=== PATIENT | male | born 1960 | race Caucasian/White ===

== ENCOUNTER 2018-03-02 18:06 | Emergency (ER) | payer SELFPAY ==
[2018-03-02 19:52] LABS: Basophils % (Auto) 0.2 % (0.0-1.8); Eosinophils # (Auto) 0.1 K/mm3 (0.0-0.4); Eosinophils % (Auto) 1.1 % (0.0-4.3); Hematocrit 38.4 % (35.5-45.6); Hemoglobin 13.1 gm/dl (11.8-15.2); Lymphocytes # (Auto) 3.2 K/mm3 (1.2-5.4); Lymphocytes % (Auto) 30.6 % (13.4-35.0); Mean Corpuscular HGB Conc 34 % (32-34); Mean Corpuscular Hemoglobin 32 pg (28-32); Mean Corpuscular Volume 92 fl (84-94); Monocytes # (Auto) 0.6 K/mm3 (0.0-0.8); Monocytes % (Auto) 5.8 % (0.0-7.3); Platelet Count 325 K/mm3 (140-440); Red Blood Count 4.15 M/mm3 (3.65-5.03); Red Cell Distribution Width 13.3 % (13.2-15.2)
[2018-03-02 20:13] LABS: Calcium 8.8 mg/dL (8.4-10.2)
[2018-03-02] MEDS ORDERED: APRESOLINE IV ONE ×2 (20:46→21:35)
[2018-03-02] MEDS ORDERED: D50W (25GM) Syringe IV ONE (20:46)
[2018-03-02] MEDS ORDERED: NORMODYNE IV ONE (20:47)
[2018-03-02] MEDS ORDERED: NACL 0.9% 1000 ML 1,000 ML IV ONE (21:35)
[2018-03-02] MEDS ORDERED: TYLENOL #3 PO ONE (21:35)
[2018-03-02] MEDS ORDERED: NACL 0.9% 1000 ML 1,000 ML ONE (21:36)
--- NOTE | 2018-03-03 02:12 | Emergency Department Report ---
HPI - General Chief Complaint: Hypoglycemia Time Seen by Provider: 03/02/18 20:43 - HPI HPI: The patient is a 57-year-old male with a history of diabetes, who presents for evaluation of low blood sugar. The patient states that last night he was found to have low blood [facility] the [facility] [place]. He currently complains of a mild achy frontal headache for the past day, consistent since onset. The patient denies fever, head injury, headache, neck pain, neck stiffness, vision or hearing changes, smell or taste changes, paresthesias, facial drooping, slurred speech, seizure-like activity, urine or bowel incontinence or retention , or other focal neurological deficit. ED Past Medical Hx - Past Medical History Previous Medical History?: Yes Hx Hypertension: Yes Hx Diabetes: Yes Hx Kidney Stones: Yes ("something with his kidneys") - Surgical History Past Surgical History?: No - Social History Smoking Status: Never Smoker Substance Use Type: None - Medications Home Medications: Home Medications Medication Instructions Recorded Confirmed Last Taken Type metFORMIN [Glucophage] 500 mg PO BID 03/02/18 03/02/18 Unknown History AtorvaSTATin [Lipitor] 40 mg PO DAILY #30 tablet 03/03/18 Unknown Rx amLODIPine [Norvasc] 5 mg PO DAILY #31 tab 03/03/18 Unknown Rx metFORMIN [Glucophage] 500 mg PO BID #30 tablet 03/03/18 Unknown Rx metFORMIN [Glucophage] 500 mg PO BID #60 tablet 03/03/18 Unknown Rx ED Review of Systems ROS: Stated complaint: GLUCOSE LOW Other details as noted in HPI Constitutional: denies: fever ENT: denies: throat or neck pain Respiratory: denies: cough, shortness of breath Cardiovascular: denies: chest pain Endocrine: denies unexplained weight loss or gain Gastrointestinal: denies: abdominal pain, nausea Genitourinary: denies: dysuria Musculoskeletal: denies: leg swelling Skin: denies: rash Neurological: reports headache Hematological/Lymphatic: denies: easy bleeding or easy bruising Psych: denies sadness or hopelessness Physical Exam - Physical Exam Vital Signs: Vital Signs 03/02/18 03/02/18 03/02/18 19:10 19:20 21:09 Temperature 98.9 F 97.7 F Pulse Rate 109 H 104 H 107 H Respiratory 18 18 Rate Blood Pressure 219/114 Blood Pressure 196/114 196/119 [Right] O2 Sat by Pulse 100 98 Oximetry 03/02/18 03/02/18 03/02/18 21:23 22:06 23:04 Temperature Pulse Rate 99 H 91 H Respiratory 16 17 Rate Blood Pressure 192/104 Blood Pressure 175/93 [Right] O2 Sat by Pulse 99 Oximetry 03/02/18 03/03/18 23:06 00:00 Temperature Pulse Rate 86 Respiratory 16 16 Rate Blood Pressure Blood Pressure 158/89 [Right] O2 Sat by Pulse 98 Oximetry Physical Exam: General: well-nourished, well-developed, no acute distress Head: Normocephalic, atraumatic Eyes: normal sclera ENT: Mucous membranes are pale and dry Neck: No neck stiffness, no cervical adenopathy Respiratory: Breath sounds equal bilaterally, no wheezing, rales, or rhonchi Cardio: S1 and S2 present, no murmurs, rubs, gallops, capillary refill is delayed Abdomen: Normoactive bowel sounds, soft abdomen, no rigidity, no guarding or rebound tenderness Chest WALL/Back: No tenderness to palpation of the chest wall, no CVA tenderness with percussion Musc: No pitting edema Skin: No rash Neuro: alert oriented x4, normal cognition, speech normal, PERRL, EOM intact, no facial drooping, no uvula or tongue deviation on protrusion, no deficit with rotation of neck or shoulder shrug, no obvious gross motor deficit in the upper or lower extremities with flexion or extension at the shoulder, elbow, wrist, hip, knee, or ankle bilaterally, no obvious gross sensation deficit to crude touch or 2 pt discrimination, 2+ symmetric reflexes on DTR testing, no coordination deficit with [id number] or [id number] testing, Babinski downgoing, romberg negative, patient able to to ambulate without abnormal gait Psych: Normal affect ED Course Vital Signs 03/02/18 03/02/18 03/02/18 19:10 19:20 21:09 Temperature 98.9 F 97.7 F Pulse Rate 109 H 104 H 107 H Respiratory 18 18 Rate Blood Pressure 219/114 Blood Pressure 196/114 196/119 [Right] O2 Sat by Pulse 100 98 Oximetry 03/02/18 03/02/18 03/02/18 21:23 22:06 23:04 Temperature Pulse Rate 99 H 91 H Respiratory 16 17 Rate Blood Pressure 192/104 Blood Pressure 175/93 [Right] O2 Sat by Pulse 99 Oximetry 03/02/18 03/03/18 23:06 00:00 Temperature Pulse Rate 86 Respiratory 16 16 Rate Blood Pressure Blood Pressure 158/89 [Right] O2 Sat by Pulse 98 Oximetry ED Medical Decision Making - Lab Data Result diagrams: 03/02/18 19:41 03/02/18 19:41 - Medical Decision Making The patient was seen and examined by myself. The patient is placed on a security officers and guards and continuous pulse ox. On initial evaluation, the patient was found to be in no distress. Evaluation orders were placed. The patient is given 1 L normal saline fluid bolus for treatment of his dehydration. The patient was given IV labetalol and hydralazine for treatment of elevated blood pressure. On reexamination the patient's blood pressure was found to decrease outside of range concerning for hypertensive emergency, and blood sugar has maintain within normal limits. The patient is stable for discharge with outpatient follow-up. The patient is given follow-up and return instructions. The patient expressed understanding and agreed with the plan. The patient is discharged in stable condition. Critical care attestation.: If time is entered above; I have spent that time in minutes in the direct care of this critically ill patient, excluding procedure time. ED Disposition Clinical Impression: Dehydration, Hypoglycemia, Hypertensive urgency Disposition: DC-01 TO HOME OR SELFCARE Is pt being admited?: No Does the pt Need Aspirin: No Condition: Stable Instructions: Diabetes Mellitus Type 2 in Adults (ED), Chronic Hypertension (ED ), Hypertension (ED) Prescriptions: amLODIPine [Norvasc] 5 mg PO DAILY #31 tab AtorvaSTATin [Lipitor] 40 mg PO DAILY #30 tablet metFORMIN [Glucophage] 500 mg PO BID #60 tablet metFORMIN [Glucophage] 500 mg PO BID #30 tablet Referrals: PRIMARY CARE,MD [Primary Care Provider] - 3-5 Days [facility] [Outside] - 3-5 Days Time of Disposition: 02:06 Print Language: TAIWANESE
[2018-03-03 02:27] VITALS: BP 161/99
== END 2018-03-03 02:41 | disposition home or self-care (01) ==
LOC: ED 18:06
DX: E11.649 Type 2 diabetes mellitus with hypoglycemia without coma (principal); E86.0 Dehydration; I16.0 Hypertensive urgency; I10 Essential (primary) hypertension; Z79.84 Long term (current) use of oral hypoglycemic drugs
CPT/HCPCS: 36415; 80048; 82962; 85025; 93005; 93010; 96361; 96374; 99284; J0360; J7030